=== PATIENT | female | born 1990 | race Caucasian/White ===

== ENCOUNTER → 2021-01-11 | Outpatient (CLI) | payer OTHER ==
[~2021-01-11] MED LIST: EMGALITY120 MG/1 M SQ; ERGO50000 PO; IBUP800
== END ==
LOC: LAB 11:30 → LAB SHORT 11:30 → EDSTATUS 01-07 17:25 → LAB FUT 01-07 17:25
DX: B80 Enterobiasis (principal)
CPT/HCPCS: 87177; 87209